=== PATIENT | female | born 1995 ===

== ENCOUNTER 2017-02-05 19:00 | Emergency (ER) | payer OTHER ==
[2017-02-05 19:00] VITALS: BMI 24.9
[2017-02-05 19:32] VITALS: BP 111/67; PULSE 73; RESP 16; TEMP 98.6; O2SAT 100
--- NOTE | 2017-02-05 20:44 | ED PDOC ---
HPI: Abdomen Time Seen by Provider: 02/05/17 19:56 Chief Complaint (Nursing): Abdominal Pain Chief Complaint (Provider): Abdominal pain History Per: Patient History/Exam Limitations: no limitations Onset/Duration Of Symptoms: Days (2) Additional Complaint(s): Patient is a 22 y/o female with no significant past medical history presenting to the emergency department for lower abdominal pain ongoing for two days with associated vaginal discharge. Reports that the pain feels like a "pulling" sensation. Of note, patient is 17 weeks . Notes concern for possible urinary tract infection. Denies vaginal bleeding, dysuria, hematuria, or other complaints. PCP: Dr. Harlan Oh : 1 Para: 0 Past Medical History Reviewed: Historical Data, Nursing Documentation, Vital Signs Vital Signs: Last Vital Signs Temp 98.6 F 02/05/17 19:28 Pulse 73 02/05/17 19:28 Resp 16 02/05/17 19:28 BP 111/67 02/05/17 19:28 Pulse Ox 100 02/05/17 20:51 - Medical History PMH: No Chronic Diseases - Surgical History Surgical History: No Surg Hx - Family History Family History: States: Unknown Family Hx - Social History Current smoker - smoking cessation education provided: No Ex-Smoker (has not smoked in the last 12 months): No Alcohol: Social Drugs: Cannabis - Immunization History Hx Tetanus Toxoid Vaccination: No - Home Medications Home Medications: Ambulatory Orders Medication Instructions Recorded Ibuprofen [Motrin] 600 mg PO Q8 PRN #20 tab 01/24/14 Cyclobenzaprine [Cyclobenzaprine 10 mg PO BID #14 tab 10/05/14 HCl] Ibuprofen [Motrin] 600 mg PO Q8 #30 tab 10/05/14 Nitrofurantoin Macrocrystals 100 mg PO BID #14 cap 10/05/14 [Macrobid] Tobramycin [Tobramycin 5 ml] 1 drop TOP ASDIR #1 bottle 11/22/14 Cyclobenzaprine [Cyclobenzaprine 10 mg PO TID #15 tab 12/14/15 HCl] Naproxen [Naprosyn] 500 mg PO BID #30 tablet 12/14/15 Nitrofurantoin Macrocrystals 100 mg PO BID #14 cap 02/05/17 [Macrobid] - Allergies Allergies/Adverse Reactions: Allergies Allergy/AdvReac Type Severity Reaction Status Date / Time No Known Allergies Allergy Verified 02/05/17 19:28 Review of Systems ROS Statement: Except As Marked, All Systems Reviewed And Found Negative Gastrointestinal: Positive for: Abdominal Pain Genitourinary Female: Positive for: Vaginal Discharge. Negative for: Dysuria, Hematuria, Vaginal Bleeding Physical Exam - Reviewed Nursing Documentation Reviewed: Yes Vital Signs Reviewed: Yes - Physical Exam Appears: Positive for: Well, Non-toxic, No Acute Distress Head Exam: Positive for: ATRAUMATIC, NORMAL INSPECTION, NORMOCEPHALIC Skin: Positive for: Normal Color, Warm, Dry Eye Exam: Positive for: Normal appearance Neck: Positive for: Normal Cardiovascular/Chest: Positive for: Regular Rate, Rhythm. Negative for: Murmur Respiratory: Positive for: Normal Breath Sounds. Negative for: Accessory Muscle Use, Respiratory Distress Gastrointestinal/Abdominal: Positive for: Soft (Gravid), Tenderness (bilateral lower quadrant tenderness). Negative for: Guarding, Rebound Extremity: Positive for: Normal ROM Neurologic/Psych: Positive for: Alert, Oriented (x3) - ECG O2 Sat by Pulse Oximetry: 100 (RA) Pulse Ox Interpretation: Normal Medical Decision Making Medical Decision Making: Time: 20:00 Initial impression: Lower abdominal pain on second trimester Initial plan: Tylenol 650 mg PO Urinalysis OB limited Reevaluation Scribe Attestation: Documented by Ameena Hurtado, acting as a scribe for Vonda Aiken MD. Provider Scribe Attestation: All medical record entries made by the Scribe were at my direction and personally dictated by me. I have reviewed the chart and agree that the record accurately reflects my personal performance of the history, physical exam, medical decision making, and the department course for this patient. I have also personally directed, reviewed, and agree with the discharge instructions and disposition. Disposition - Clinical Impression Clinical Impression: Abdominal pain during in second trimester, UTI in - Disposition Referrals: Harlan Oh MD [Staff Provider] - Disposition: Routine/Home Disposition Time: 23:27 Condition: STABLE Prescriptions: Nitrofurantoin Macrocrystals [Macrobid] 100 mg PO BID #14 cap Instructions: Abdominal Pain in (ED), Urinary Tract Infection in (ED) Forms: [employer] (Uzbek)
[2017-02-05 21:01] LABS: RBC URINE 8 /hpf (0-3); URINE BACTERIA RARE (<OCC); URINE BILIRUBIN NEGATIVE (NEGATIVE); URINE BLOOD SMALL (NEGATIVE); URINE COLOR YELLOW (YELLOW); URINE GLUCOSE (UA) NEG (Normal); URINE KETONE NEGATIVE (NEGATIVE); URINE LEUKOCYTE ESTERASE TRACE Leu/uL (Negative); URINE PROTEIN NEGATIVE (NEGATIVE); URINE UROBILINOGEN 0.2-1.0 mg/dL (0.2-1.0); WBC URINE 9 /hpf (0-5)
--- NOTE | 2017-02-06 08:06 | US ---
PROCEDURE: Second trimester ultrasound HISTORY: Lower abd pain Menstrual status: LMP unknown COMPARISON: None available. TECHNIQUE: Standard protocol for this study/examination. FINDINGS: Variable presentation. Posterior ribs Placenta. No evidence of abruption or previa Gestational age derived from LMP Cannot be ascertained based in the absence of a reliable/ known LMP Gestational age derived from the following biometric parameters 17 weeks 3 days . RAINA 07/13/2017 Biparietal diameter 3.85 cm Head .45 cm Abdominal circumference 11.26 cm Femur length 2.32 cm Estimated weight 182 g Calculated cardiac rate 144 beats per min. Closed cervix measuring 4.72 cm IMPRESSION: 17 weeks 3 days live intrauterine gestation. Gestational concordance Cannot be ascertained based in the absence of a reliable/ known LMP Concordant results (preliminary interpretation) provided by [facility]. Procedure Completed: 21:18 Preliminary ([facility]) Report: Dictated and Authenticated: 23:47 Final Interpretation: 08:05 February 06, 2017.
== END 2017-02-06 00:01 | disposition home or self-care (01) ==
LOC: H.ER 19:00
DX: O23.40 Unspecified infection of urinary tract in pregnancy, unspecified trimester (principal)

== ENCOUNTER 2017-05-10 19:00 | Emergency (ER) | payer OTHER ==
[2017-05-10 20:12] VITALS: BMI 30.7
[2017-05-10] MEDS ORDERED: Lactated Ringer's 1,000 ML IV SCH (20:15)
[2017-05-10 20:48] LABS: ALBUMIN 3.2 g/dL (3.5-5.0); ALT/SGPT 26 U/L (9-52); AST/SGOT 21 U/L (14-36); BLOOD UREA NITROGEN 7 mg/dl (7-17); GFR AFRICAN-AMERICAN > 60; GFR NON-AFRICAN AMERICAN > 60
[2017-05-10 21:50] LABS: SQUAMOUS EPITHIAL 8 /hpf (0-5); URINE BACTERIA OCC (<OCC); URINE BILIRUBIN NEGATIVE (NEGATIVE); URINE BLOOD NEGATIVE (NEGATIVE); URINE CLARITY CLOUDY (Clear); URINE COLOR AMBER (YELLOW); URINE GLUCOSE (UA) NEG (Normal); URINE HYALINE CAST 0-2 /hpf (0-2); URINE LEUKOCYTE ESTERASE MOD Leu/uL (Negative); URINE NITRATE POSITIVE (NEGATIVE); URINE PROTEIN 30 mg/dL (NEGATIVE); URINE UROBILINOGEN 0.2-1.0 mg/dL (0.2-1.0)
--- NOTE | 2017-05-10 22:13 | OBHP ---
Datetime: 05/10/2017 20:05 IP Adm Impression: , intrauterine Admit Comment, IP Provider: 22 yo at 30+3 weeks gestational age, RAINA 07/16/17 presented to OB ED with c/o abdominal cramping and nausea/vomiting since x2 days. States she feels tight abdominal cr amps 2-3 times throughout the night, and the cramps start when she lies down for bed. Has vomited 2x 2 days ago, and once today. Vomit is food particles and saliva, no blood. Reports good movement, denies vaginal bleeding or loss of fluid, denies regular contractions . care: Dr. Oh; last visit was Saturday (3d ago) OB hx: 1 TOP at 4 weeks, surgical. PMH: denies Fam hx: denies Social hx: denies Surg hx: elective TOP Allergies: nkda Meds: PNV ROS: admits to itching with urination, nausea and vomiting over the past 2 days. Denies dizziness, headache, blurry vision, shortness of breath. Exam: for PE see notes not yamileth on monitor reactive FHR A: 22 yo at 30+3 weeks; does not appear to be in active labor. P: hydration, cmp, ua; reassessment Patient was seen with resident I agree with the note. Urine analysis reveals white blood cells and positive leukocytes patient to be treated with Macrobid 7 days. Patient instructed to follow up wi [facility] PMD in 1 week Extremities - PN: Normal Abdomen - PN: Normal Back - PN: Normal Breast - PN: Not Done Lungs - PN: Normal Heart - PN: Normal Thyroid - PN: Not Done Neurologic - PN: Normal HEENT - PN: Normal General - PN: Normal FHR - Baseline A Provider: 150 IP Chief Complaint: Maternal discomfort NICHD Variability Prov Fetus A: Moderate 6-25bpm NICHD Accel Fetus A IP Provider: 15X15 FHR Category Provider Fetus A: Category I
[2017-05-11 03:08] VITALS: BP 103/55; PULSE 77; O2SAT 100
== END 2017-05-10 22:30 | disposition home or self-care (01) ==
LOC: H.EROB2 19:00
DX: O23.43 Unspecified infection of urinary tract in pregnancy, third trimester (principal); O26.93 Pregnancy related conditions, unspecified, third trimester; R10.2 Pelvic and perineal pain; Z3A.30 30 weeks gestation of pregnancy
CPT/HCPCS: 80053; 81003; 96360; 99283; J7120

== ENCOUNTER 2017-05-24 11:18 | Emergency (ER) | payer OTHER ==
[2017-05-24 12:12] VITALS: BMI 30.5
--- NOTE | 2017-05-24 13:54 | OBDCSUM ---
Datetime: 05/24/2017 12:23 Discharged to, Provider: Home Follow up at, Provider: Disch Instr Activity: Normal activity Disch Instr Diet: Regular Discharge Instructions, Provider: Routine instructions given Discharge Time: 05/24/2017 12:30 Follow up in weeks, Provider: call for appointment Disch Referrals: None Contraception discussed, Prov: Yes Discharge Diagnosis Prov Other: vaginal bleeding
--- NOTE | 2017-05-24 13:54 | OBHP ---
Datetime: 05/24/2017 12:22 IP Adm Impression: , intrauterine IP Admit Plan: Discharge home Admit Comment, IP Provider: 22 y/o Female at 32.3 weeks GA with RAINA 07/16/17 by LMP 10/09/16 a nd confirmed by 1st trim US, complaining of vaginal bleeding. Pt described seeing vaginal blood spott ing since last night after coitus. Pt reports vaginal spotting usually occurs after sexual intercours e and disappears the next day. However, vaginal spotting is still present today. FM present. Pt denie s LOF, CTX, urinary complaints, rash, headache or dizziness. NKDA PN Care: with Dr Oh at [facility]. PN Labs: blood group B pos, antibody negative. OBGYN Hx: 1 spontaneous at 1st trimester. PMHx: denied PSHx: denied FHx: NC SHx: No tobacco, alcohol or recreational drugs. A/P: 22 y/o F with IUP at 32.3 weeks GA with vaginal spotting. -Discharge pt after 30 mins of reassuring FHT. -PTL precautions discussed with pt. -Hydration by increasing fluid intake encouraged. Case discussed with Dr Bhardwaj, OB intelligence applications. Dr Tian, PGY-[address] Bhardwaj: Patient evaluated independently and I agree with the above Extremities - PN: Normal Abdomen - PN: Normal Back - PN: Normal Lungs - PN: Normal Heart - PN: Normal Thyroid - PN: Normal Neurologic - PN: Normal HEENT - PN: Normal General - PN: Normal FHR - Baseline A Provider: 150 Comments, ACOG Physical Exam: Pelvic exam: with speculum cervix closed with presence of not significant amount of brownish discharge. Pool Provider: Positive IP Hx Assessment: The History has been Reviewed and is Current EGA AdmitDate IP: 32.3 IP Chief Complaint: Vaginal bleeding NICHD Variability Prov Fetus A: Moderate 6-25bpm NICHD Accel Fetus A IP Provider: 15X15 FHR Category Provider Fetus A: Category I Dilatation, Provider: 0 Effacement, Provider: long Station, Provider: high DTRs - PN: Normal
[2017-05-24 16:59] VITALS: BP 106/66; PULSE 69; RESP 16; TEMP 97.6; O2SAT 100
== END 2017-05-24 12:25 | disposition home or self-care (01) ==
LOC: H.EROB2 11:18
DX: O26.853 Spotting complicating pregnancy, third trimester (principal); Z3A.32 32 weeks gestation of pregnancy

== ENCOUNTER 2017-07-02 03:35 | Inpatient (IN) | payer OTHER ==
[2017-07-02 07:31] VITALS: BMI 31.7
--- NOTE | 2017-07-02 07:32 | OBHP ---
Datetime: 07/02/2017 05:58 IP Adm Impression: Term, intrauterine IP Admit Plan: Observation/Evaluation Admit Comment, IP Provider: CC: ctx HPI: 22YO @ 38wks IUP presents to [facility] for ctx and abdominal pressure that started 3:30 AM this morning. Pt states that her ctx are 7/10 in intensity and are currently Q5mins. Good FM, no LOF , VB. MD: Dr. Oh ObHx: 1 SAB in 2011 PMH: denies SurgH: denies FH: denies SH: denies ETOH, smoking and illicit drug use Allergies: NKDA Meds: PNV PE: GEN: NAD Carduo: S1S2 no additional sounds Resp: clear breath sounds b/l Abdomen: NT, BS+, Gravid Neuro: AAO x 3 Ext: NT, no edema noted Cervx: 2-/0 FM: 140, catagory I A/P: 22YO (RAINA 07/16 by LMP) @ 38wks IUP is evelauted for labor, in latent phase labor. GBS pos, hepB neg, rubella equ, HIV +RPR neg (1st tri). -continue FM -pt encouraged to ambulate -Observe and reevalute Pt discussed with Dr. Burt Aguilar, PGY I OB attending addendum: Patient seen and examined by me agree with above assessment and plan Pelvic Type - PN: Adequate Extremities - PN: Normal Abdomen - PN: Normal Back - PN: Not Done Breast - PN: Normal Lungs - PN: Normal Heart - PN: Normal Thyroid - PN: Not Done Neurologic - PN: Normal HEENT - PN: Normal General - PN: Normal FHR - Baseline A Provider: 140 Membranes, Provider: Intact EGA AdmitDate IP: 38.0 Vital Signs Provider: Reviewed; Within Normal Limits IP Chief Complaint: Uterine contractions NICHD Variability Prov Fetus A: Moderate 6-25bpm NICHD Accel Fetus A IP Provider: 15X15 FHR Category Provider Fetus A: Category I Dilatation, Provider: 2-3 Effacement, Provider: 60 Station, Provider: 0 Genitourinary Exam: Normal DTRs - PN: Not Done
--- NOTE | 2017-07-02 07:36 | OBADHP ---
Datetime: 07/02/2017 07:34 Admit Comment, IP Provider: CC: ctx HPI: 22YO @ 38wks IUP presents to [facility] for ctx and abdominal pressure that started 3:30 AM this morning. Pt states that her ctx are 7/10 in intensity and are currently Q5mins. Good FM, no LOF , VB. MD: Dr. Oh ObHx: 1 SAB in 2011 PMH: denies SurgH: denies FH: denies SH: denies ETOH, smoking and illicit drug use Allergies: NKDA Meds: PNV PE: GEN: NAD Carduo: S1S2 no additional sounds Resp: clear breath sounds b/l Abdomen: NT, BS+, Gravid Neuro: AAO x 3 Ext: NT, no edema noted Cervx: 2-/0 FM: 140, catagory I A/P: 22YO (RAINA 07/16 by LMP) @ 38wks IUP is evelauted for labor, active labor. GBS pos, hepB neg, rubella equ, HIV +RPR neg (1st tri). admit begin pnc G pt d/w dr iker mccurdy for epid Dilatation, Provider: 3 Effacement, Provider: 80 Datetime: 07/02/2017 05:58 Pelvic Type - PN: Adequate Extremities - PN: Normal Abdomen - PN: Normal Back - PN: Not Done Breast - PN: Normal Lungs - PN: Normal Heart - PN: Normal Thyroid - PN: Not Done Neurologic - PN: Normal HEENT - PN: Normal General - PN: Normal FHR - Baseline A Provider: 140 Membranes, Provider: Intact Vital Signs Provider: Reviewed; Within Normal Limits IP Chief Complaint: Uterine contractions NICHD Variability Prov Fetus A: Moderate 6-25bpm NICHD Accel Fetus A IP Provider: 15X15 FHR Category Provider Fetus A: Category I Station, Provider: 0 Genitourinary Exam: Normal DTRs - PN: Not Done EGA AdmitDate IP: 38.0 IP Adm Impression: Term, intrauterine IP Admit Plan: Observation/Evaluation Datetime: 05/24/2017 12:22 Comments, ACOG Physical Exam: Pelvic exam: with speculum cervix closed with presence of not significant amount of brownish discharge. Pool Provider: Positive IP Hx Assessment: The History has been Reviewed and is Current
[2017-07-02] MEDS ORDERED: Penicillin G Potassium 5 MU in Sodium Chloride 0.9% 50 ML IVPB ONE (07:37)
--- NOTE | 2017-07-02 07:40 | OBADHP ---
Datetime: 07/02/2017 07:34 Admit Comment, IP Provider: CC: ctx HPI: 22YO @ 38wks IUP presents to [facility] for ctx and abdominal pressure that started 3:30 AM this morning. Pt states that her ctx are 7/10 in intensity and are currently Q5mins. Good FM, no LOF , VB. MD: Dr. Oh ObHx: 1 SAB in 2011 PMH: denies SurgH: denies FH: denies SH: denies ETOH, smoking and illicit drug use Allergies: NKDA Meds: PNV PE: GEN: NAD Carduo: S1S2 no additional sounds Resp: clear breath sounds b/l Abdomen: NT, BS+, Gravid Neuro: AAO x 3 Ext: NT, no edema noted Cervx: 2-360/0 FM: 140, catagory I A/P: 22YO (RAINA 07/16 by LMP) @ 38wks IUP active labor. resolved variables GBS pos admit begin pnc G pt d/w dr oh ok for epid Presentation-Admit: Vertex FHR - Baseline A Provider: 150-160 Membranes, Provider: Intact Contraction Comments Provider: q4min Comments, ACOG Physical Exam: , hepB neg, rubella equ, HIV +RPR neg (1st tri). IP Chief Complaint: Uterine contractions NICHD Variability Prov Fetus A: Moderate 6-25bpm NICHD Accel Fetus A IP Provider: 15X15 FHR Category Provider Fetus A: Category I NICHD Decel Fetus A IP Provider: Variable Station, Provider: -1 EGA AdmitDate IP: 38.0 IP Adm Impression: Term, intrauterine IP Admit Plan: Admit to unit; Initiate labor protocol
[2017-07-02] MEDS: Lactated Ringer's 1,000 ML IV SCH ×4 (07:45→21:00)
[2017-07-02 08:12] LABS: BASO % 0.3 % (0.0-2.0); EOS % 0.3 % (0.0-4.0); HEMOGLOBIN 12.1 g/dL (12.0-16.0); LYMPH # 2.2 K/uL (1.0-4.3); LYMPH % 22.1 % (20.0-40.0); MEAN CORPUSCULAR HEMOGLOBIN 29.5 pg (27.0-31.0); MEAN CORPUSCULAR HGB CONC 33.7 g/dL (33.0-37.0); MEAN PLATELET VOLUME 10.1 fl (7.2-11.7); MONO # 0.9 K/uL (0.0-0.8); MONO % 8.8 % (0.0-10.0); NEUT # 6.8 K/uL (1.8-7.0); NEUT % 68.5 % (50.0-75.0); NRBC % 0.1 % (0.0-0.0); RBC 4.1 Mil/uL (3.80-5.20); RED CELL DISTRIBUTION WIDTH 14.1 % (11.5-14.5); WHITE BLOOD COUNT 9.9 K/uL (4.8-10.8)
[2017-07-02 08:16] LABS: MEAN CELL VOLUME 87.6 fl (81.0-99.0)
[2017-07-02] MEDS ORDERED: Fentanyl/Bupivacaine HCl 250 ML EPI ONE (11:33)
[2017-07-02] MEDS ORDERED: Fentanyl/Bupivacaine HCl 125 ML EPI ONE (12:15)
[2017-07-02] MEDS ORDERED: Oxytocin 30 units/LR 500ML 30 U/500 ML BAG IV ONE (18:48)
--- NOTE | 2017-07-03 00:55 | OBDS ---
MATERNAL INFORMATION Estimated Blood Loss (ml): 250 Maternal Complications: None Provider Comments: Delivered a living baby girl appears term cried spontaneously 9/9 AF clear Placenta complete and intact Episiotomy done and repaired as above, uterus contracted well, rectal do ne no defects Tolerated procedure well No complications LABOR SUMMARY EDC: 07/16/2017 00:00 No. Babies in Womb: 1 Attempted: Yes Labor Anesthesia: Epidural LABOR INFORMATION Reason for Induction: Not Applicable Onset of Labor: 07/02/2017 11:00 Group B Beta Strep: Positive Steroids Given: None Reason Steroids Not Administered: Not Applicable VAGINAL DELIVERY Episiotomy: Median Laceration Extension: N/A Laceration Type: None Laceration Repair: Not Applicable Laceration Repair Note: midline episiotomy done 1-2 dg and repaired with 2-0 chromic sutures without any complications Sponge Count Correct: Yes Sharps Count Correct: Yes Count Comment: count correct and verified by RN CSECTION DELIVERY Primary Indication: N/A Secondary Indication: N/A CSection Incision: N/A
[2017-07-03] MEDS ORDERED: Oxycodone/Acetaminophen 5/325 mg Tab PO PRN ×2 (00:58→06:14)
[2017-07-03] MEDS: Lactated Ringer's 1,000 ML IV SCH (01:30)
[2017-07-03 06:56] LABS: HEMOGLOBIN 10.5 g/dL (12.0-16.0); MEAN CELL VOLUME 86.9 fl (81.0-99.0); MEAN CORPUSCULAR HEMOGLOBIN 29.9 pg (27.0-31.0); MEAN CORPUSCULAR HGB CONC 34.5 g/dL (33.0-37.0); RBC 3.51 Mil/uL (3.80-5.20); RED CELL DISTRIBUTION WIDTH 14.2 % (11.5-14.5); WHITE BLOOD COUNT 14.5 K/uL (4.8-10.8)
[2017-07-03] MEDS ORDERED: Benzocaine/Menthol SPRAY TOP PRN (13:10)
--- NOTE | 2017-07-04 07:56 | OBPPN ---
Datetime: 07/04/2017 07:50 PP Pain Prov: Within normal limits PP Pain Prov comment: No SOB, chest or leg pains PP Nausea Prov: Denies PP Flatus Prov: Yes PP Nausea Prov comment: voiding well PP Breasts Prov: Normal PP Lungs Prov: Normal PP Abdomen/Uterus Prov: Abnormal PP Lochia Prov: Normal PP Vulva/Perineum Prov: Abnormal PP CVA Tenderness Prov: Normal PP Extremities Prov: Normal PP C/S Incision Prov: Not Applicable PP Progress Prov: Normal PP Comments Phys Exam Prov: breast not engorged NT; Abd soft ND, fundus firm NT below the umb.; Perineum repaired; Ext no calf tenderness PP Impression Prov: Normal progression PP Plan Prov: Continue present management PP Progress Note Prov: OOB and ambulation Continue PP care IP PP Procedures: None Vital Signs Provider PP: Reviewed
[2017-07-04] MEDS: Hydrocortisone 2.5% (Rectal) CREAM PR SCH ×2 (14:44→17:15)
[2017-07-04] MEDS: Hydrocortisone-Pramoxine 1%-1% Foam(10 gm) TOP SCH ×2 (14:46→17:15)
[2017-07-05] MEDS: Hydrocortisone-Pramoxine 1%-1% Foam(10 gm) TOP SCH (09:07)
[2017-07-05] MEDS: Hydrocortisone 2.5% (Rectal) CREAM PR SCH (09:08)
--- NOTE | 2017-07-05 12:44 | OBPPN ---
Datetime: 07/05/2017 12:38 PP Pain Prov: Within normal limits PP Pain Prov comment: No SOB, chest or leg pains PP Nausea Prov: Denies PP Flatus Prov: Yes PP Breasts Prov: Normal PP Lungs Prov: Normal PP Abdomen/Uterus Prov: Abnormal PP Lochia Prov: Normal PP Vulva/Perineum Prov: Abnormal PP CVA Tenderness Prov: Normal PP Extremities Prov: Normal PP Comments Phys Exam Prov: Breast not engorged, fundus firm below the umb NT, abd not distended Perineum repaired ext no calf tenderness PP Impression Prov: Normal progression PP Plan Prov: Continue present management PP Progress Note Prov: D/C home and appt to office 1 wk instructions given IP PP Procedures: None
--- NOTE | 2017-07-05 12:44 | OBDCSUM ---
Datetime: 07/05/2017 12:42 Discharged to, Provider: Home Follow up at, Provider: Dr Adriano Buchanan Instr Activity: Bedrest; May be up to bathroom; May be up for meals; May Shower Disch Instr Diet: Regular Discharge Instructions, Provider: Routine instructions given Discharge Diagnosis, Provider: Term Delivered Discharge Time: 07/05/2017 12:43 Follow up in weeks, Provider: 4-5 wks Disch Referrals: None Contraception discussed, Prov: Yes Disch Activity Restrictions: No exercising; No lifting; No driving; Minimize walking; Minimize stair -climbing; No sexual activity; Nothing in vagina - [place], tampons, douche Discharge Comment, Provider: Continue pp care and PNC vit Contraception after Delivery: Undecided Datetime: 07/05/2017 11:12 Discharged to, Provider: Home Follow up at, Provider: Dr. Adriano Buchanan Instr Activity: Normal activity; May be up to bathroom; May be up for meals; May Shower Disch Instr Diet: Regular Discharge Diagnosis, Provider: Term Delivered Discharge Time: 07/05/2017 11:12 Follow up in weeks, Provider: 6 weeks Disch Referrals: None Disch Activity Restrictions: Minimize stair-climbing; No sexual activity; Nothing in vagina - Interc ourse, tampons, douche
[2017-07-05 18:14] VITALS: BP 128/88; PULSE 72; RESP 20; TEMP 98; O2SAT 98
== END 2017-07-05 12:00 | disposition home or self-care (01) | DRG 373 ==
LOC: H.EROB2 03:35 → H.L&D 07:31 → H.OB/GYN 07-03 05:30
PROVIDERS: ADMIT Specialist; ATTEND Specialist
PROC: 4A1HXCZ Monitoring of Products of Conception, Cardiac Rate, External Approach (ICD-10-PCS; 2017-07-02)
PROC: 0W8NXZZ Division of Female Perineum, External Approach (ICD-10-PCS; principal; 2017-07-03)
PROC: 10E0XZZ Delivery of Products of Conception, External Approach (ICD-10-PCS; 2017-07-03)
DX: O99.824 Streptococcus B carrier state complicating childbirth (principal); Z3A.38 38 weeks gestation of pregnancy; Z37.0 Single live birth

== ENCOUNTER 2017-11-22 21:26 | Inpatient (IN) | payer OTHER ==
[2017-11-22 21:26] VITALS: BMI 31.7
[2017-11-22] MEDS ORDERED: Sodium Chloride 0.9% 1,000 ML IV STA (22:19)
[2017-11-22] MEDS ORDERED: Alum-Mag Hydrox-Simethicone Susp (30 mL) PO STA (22:20)
[2017-11-22 22:50] LABS: BASO # 0.1 K/uL (0.0-0.2); BASO % 0.6 % (0.0-2.0); EOS # 0.1 K/uL (0.0-0.7); EOS % 0.6 % (0.0-4.0); HEMOGLOBIN 13.8 g/dL (12.0-16.0); LYMPH # 2.9 K/uL (1.0-4.3); LYMPH % 28.3 % (20.0-40.0); MEAN CELL VOLUME 89.8 fl (81.0-99.0); MEAN CORPUSCULAR HEMOGLOBIN 31.2 pg (27.0-31.0); MEAN CORPUSCULAR HGB CONC 34.8 g/dL (33.0-37.0); MEAN PLATELET VOLUME 9.2 fl (7.2-11.7); MONO % 9.2 % (0.0-10.0); NEUT # 6.3 K/uL (1.8-7.0); NEUT % 61.3 % (50.0-75.0); NRBC % 0.1 % (0.0-0.0); RBC 4.4 Mil/uL (3.80-5.20); RED CELL DISTRIBUTION WIDTH 13.5 % (11.5-14.5); WHITE BLOOD COUNT 10.4 K/uL (4.8-10.8)
[2017-11-22 22:57] LABS: CALCIUM 9.3 mg/dL (8.4-10.2); GFR NON-AFRICAN AMERICAN > 60; LIPASE 108 U/L (23-300); SQUAMOUS EPITHIAL 9 /hpf (0-5); URINE BILIRUBIN NEGATIVE (NEGATIVE); URINE BLOOD NEGATIVE (NEGATIVE); URINE CLARITY CLOUDY (Clear); URINE COLOR YELLOW (YELLOW); URINE GLUCOSE (UA) NEG (Normal); URINE LEUKOCYTE ESTERASE MOD Leu/uL (Negative); URINE PROTEIN NEGATIVE (NEGATIVE); URINE UROBILINOGEN 0.2-1.0 mg/dL (0.2-1.0)
[2017-11-22 23:15] LABS: ALB/GLOB RATIO 1.4 (1.0-2.1); ALBUMIN 4.8 g/dL (3.5-5.0); ALT/SGPT 11 U/L (9-52); AST/SGOT 47 U/L (14-36); BLOOD UREA NITROGEN 15 mg/dl (7-17)
--- NOTE | 2017-11-22 23:59 | ED PDOC ---
HPI: Abdomen Time Seen by Provider: 11/22/17 21:48 Chief Complaint (Nursing): Abdominal Pain Chief Complaint (Provider): Abdominal Pain History Per: Patient History/Exam Limitations: no limitations Onset/Duration Of Symptoms: Days (x1 week) Current Symptoms Are (Timing): Still Present Additional Complaint(s): 22 year old female with hx of reflux presents to the ED for evaluation of progressively worsening epigastric pain radiating to her back associated with nausea for the past week. She states the day before the pain started, she did have a beer and a shot of liquor. Patient reports that today the pain became worse, therefore took an omeprazole and came in for eval. Otherwise, denies chest pain, vomiting, shortness of breath, palpitations, and previous abdominal surgery. Last bowel movement: today, normal. PMD: Dr. Orozco Past Medical History Reviewed: Historical Data, Nursing Documentation, Vital Signs Vital Signs: Last Vital Signs Temp 97.7 F 11/23/17 05:01 Pulse 68 11/23/17 05:23 Resp 18 11/23/17 05:23 BP 110/72 11/23/17 05:01 Pulse Ox 98 11/23/17 05:01 - Medical History PMH: Denies: Depression, Diabetes, HTN, Chronic Kidney Disease - Surgical History Surgical History: No Surg Hx - Family History Family History: States: Unknown Family Hx - Social History Current smoker - smoking cessation education provided: No Alcohol: Social Drugs: Cannabis - Immunization History Hx Tetanus Toxoid Vaccination: No - Home Medications Home Medications: Ambulatory Orders Medication Instructions Recorded No Known Home Med 11/23/17 - Allergies Allergies/Adverse Reactions: Allergies Allergy/AdvReac Type Severity Reaction Status Date / Time No Known Allergies Allergy Verified 05/24/17 12:12 Review of Systems ROS Statement: Except As Marked, All Systems Reviewed And Found Negative Cardiovascular: Negative for: Chest Pain, Palpitations Respiratory: Negative for: Shortness of Breath Gastrointestinal: Positive for: Nausea, Abdominal Pain (epigastric, radiating to back). Negative for: Vomiting Physical Exam - Reviewed Nursing Documentation Reviewed: Yes Vital Signs Reviewed: Yes - Physical Exam Appears: Positive for: In Acute Distress (moderate painful) Skin: Positive for: Normal Color, Warm, Dry Eye Exam: Positive for: Normal appearance. Negative for: Scleral icterus Cardiovascular/Chest: Positive for: Regular Rate, Rhythm. Negative for: Murmur Respiratory: Positive for: Normal Breath Sounds. Negative for: Accessory Muscle Use, Respiratory Distress Gastrointestinal/Abdominal: Positive for: Tenderness (moderate epigastric and mild RUQ). Negative for: Other (pennington's sign) Back: Positive for: Normal Inspection. Negative for: L CVA Tenderness, R CVA Tenderness Neurologic/Psych: Positive for: Alert, Oriented (x3) - Laboratory Results Result Diagrams: 11/22/17 22:44 11/22/17 22:44 - ECG O2 Sat by Pulse Oximetry: 100 (RA) Pulse Ox Interpretation: Normal Medical Decision Making Medical Decision Making: Time: 2219 Initial Impression: abdominal pain, r/o pancreatitis and cholecystitis Initial Plan: --CMP --Lipase --Urine --CBC with differential --Maalox 30ml PO --Normal saline IV --Pepcid 40mg IVP --Zofran 4mg IVP --Urine culture --Urinalysis --US gallbladder and pancreas 2301 On reevaluation, pt reports no relief in pain. Morphine 4mg ordered. 2333 On second reevaluation, pt reports pain initially resolved, but has now returned. Pending US. 0043 Abd US: Cholelithiasis without sonographic evidence of acute cholecystitis. Pt. still with pain. Morphine 4mg IV. CT abd/pelvis w/ IV contrast ( cholecystitis protocol) ordered. 0252 CT abd/pelvis: 1. Partially distended 9 cm gallbladder with gallstones gallbladder wall prominence measuring 2-3 mm and pericholecystic fluid. Correlation with clinical data is recommended if acute on chronic cholecystitis is clinically suspected. 2. There is left ovarian hypodense cyst measuring 3.6 cm and the right ovarian hypodense cyst measuring 3.0 cm.If clinically warranted, a pelvic ultrasound with spectral Doppler interrogation may be helpful for further assessment. Case d/w Dr. Aguayo, surgery non profit financial controller, who agrees with care and recommends Cipro IV/Flagyl IV and will contact Dr. Mcclendon herself. Case d/w Dr. Mojica, [facility] non profit financial controller, arrangements made for admission. Scribe Attestation: Documented by Nayely Saunders, acting as a scribe for Sean Elizondo PA-C. Provider Scribe Attestation: All medical record entries made by the Scribe were at my direction and personally dictated by me. I have reviewed the chart and agree that the record accurately reflects my personal performance of the history, physical exam, medical decision making, and the department course for this patient. I have also personally directed, reviewed, and agree with the discharge instructions and disposition. Disposition - Clinical Impression Clinical Impression: Cholecystitis - Patient ED Disposition Is Patient to be Admitted: Yes - Disposition Disposition Time: 02:52 Condition: FAIR
[2017-11-23] MEDS ORDERED: Sodium Chloride 0.9% 1,000 ML IV STA (00:53)
[2017-11-23] MEDS ORDERED: Morphine 4 MG/ML VIAL ONE (01:05)
[2017-11-23] MEDS ORDERED: Iohexol 300 100 ML IJ ONE (02:03)
[2017-11-23] MEDS ORDERED: Sodium Chloride 0.9% 50 ML IV ONE (02:03)
[2017-11-23] MEDS ORDERED: Ciprofloxacin 400mg/200ml D5W 400 MG/200 ML BAG IVPB STA (03:15)
[2017-11-23] MEDS ORDERED: metroNIDAZOLE 500mg/100ml NS 100 ML IVPB STA (03:15)
[2017-11-23] MEDS ORDERED: metroNIDAZOLE 500mg/100ml NS 100 ML IVPB ONE (04:19)
[2017-11-23] MEDS ORDERED: Dextrose 5%/0.45% NS 1,000 ML IV SCH (06:30)
[2017-11-23] MEDS: Lactated Ringer's 1,000 ML IV SCH ×2 (06:38→22:00)
--- NOTE | 2017-11-23 07:51 | CT ---
Date of service: 11/23/2017 PROCEDURE: CT Abdomen and Pelvis without intravenous contrast HISTORY: epigastric and RUQ pain COMPARISON: None. TECHNIQUE: Technique. Contrast dose: Radiation dose: Total exam DLP = mGy-cm. This CT exam was performed using one or more of the following dose reduction techniques: Automated exposure control, adjustment of the mA and/or kV according to patient size, and/or use of iterative reconstruction technique. FINDINGS: LOWER THORAX: Unremarkable. LIVER: Unremarkable. No gross lesion or ductal dilatation. GALLBLADDER AND BILE DUCTS: Cholelithiasis. PANCREAS: Unremarkable. No gross lesion or ductal dilatation. SPLEEN: Unremarkable. ADRENALS: Unremarkable. No mass. KIDNEYS AND URETERS: Unremarkable. No hydronephrosis. No solid mass. VASCULATURE: Unremarkable. No aortic aneurysm. BOWEL: Unremarkable. No obstruction. No gross mural thickening. APPENDIX: Unremarkable. Normal appendix. PERITONEUM: Unremarkable. No free fluid. No free air. LYMPH NODES: Unremarkable. No enlarged lymph nodes. BLADDER: Unremarkable. REPRODUCTIVE: Bilateral ovarian cysts/ cystic lesions measuring up to 3.8 centimeters on the left for which correlation pelvic ultrasound is recommended. BONES: No acute fracture. OTHER FINDINGS: None. IMPRESSION: Bilateral ovarian cysts/ cystic lesions measuring up to 3.8 centimeters on the left for which correlation pelvic ultrasound is recommended. Cholelithiasis.
--- NOTE | 2017-11-23 08:21 | US ---
Date of service: 11/22/2017 HISTORY: epigastric and RUQ pain COMPARISON: None. TECHNIQUE: Sonographic evaluation of the right upper quadrant of the abdomen. FINDINGS: LIVER: Measures cm in length. Normal echogenicity of the liver parenchyma. No mass. No intrahepatic bile duct dilatation. GALLBLADDER: Gallstones. COMMON BILE DUCT: Measures mm. No stones. No dilatation. PANCREAS: Unremarkable as visualized. No mass. No ductal dilatation. RIGHT KIDNEY: Measures cm in length. Normal echogenicity. No calculus, mass, or hydronephrosis. AORTA: No aneurysmal dilatation. IVC: Unremarkable. OTHER FINDINGS: None . IMPRESSION: Cholelithiasis.
[2017-11-23] MEDS: metroNIDAZOLE 500mg/100ml NS 100 ML IVPB SCH (08:57)
[2017-11-23] MEDS: Ciprofloxacin 400mg/200ml D5W 400 MG/200 ML BAG IVPB SCH (08:57)
--- NOTE | 2017-11-23 09:42 | CP.PCM.CON ---
History of Present Illness - History of Present Illness History of Present Illness: General Surgery Dr. Mcclendon 22 y/o F w/ no PMHx presents to the ED c/o epigastric/RUQ abd pain. Pain started 1wk [employer] w/ acute worsening overnight. Pain radiates from epigastric region to RUQ and R lower back. For the last week , pain resolved w/ alkaseltzer , however, last night, nothing seemed to help the pain. Pt reports pain made worse by PO intake. Pt reports similar pain when , however pt did not receive workup at that time. Pt admits to concurrent nausea w/ NBNB vomiting. Pt also admits to CP/SOB 2/2 abd pain. PMHx: denies Meds: reviewed in chart NKDA PSHx: denies SHx: denies tobacco, drug use. occasional EtOH FHx: denies Review of Systems - Review of Systems All systems: reviewed and no additional remarkable complaints except (see HPI) Past Patient History - Infectious Disease Hx of Infectious Diseases: None - Tetanus Immunizations Tetanus Immunization: Unknown - Past Medical History & Family History Past Medical History?: Yes - Past Social History Alcohol: Social Drugs: Cannabis - CARDIAC Hx Hypertension: No - PULMONARY Hx Respiratory Disorders: No - NEUROLOGICAL Hx Neurological Disorder: No - HEENT Hx HEENT Problems: No - RENAL Hx Chronic Kidney Disease: No - ENDOCRINE/METABOLIC Hx Endocrine Disorders: No - HEMATOLOGICAL/ONCOLOGICAL Hx Blood Disorders: No - INTEGUMENTARY Hx Dermatological Problems: No - MUSCULOSKELETAL/RHEUMATOLOGICAL Hx Musculoskeletal Disorders: No Hx Falls: No - GASTROINTESTINAL Hx Gastrointestinal Disorders: Yes Other/Comment: Acid reflux - GENITOURINARY/GYNECOLOGICAL Hx Genitourinary Disorders: No - PSYCHIATRIC Hx Depression: No - SURGICAL HISTORY Hx Surgeries: Yes Other/Comment: x1 - ANESTHESIA Hx Anesthesia: Yes Hx Anesthesia Reactions: No Hx Malignant Hyperthermia: No Meds Allergies/Adverse Reactions: Allergies Allergy/AdvReac Type Severity Reaction Status Date / Time No Known Allergies Allergy Verified 05/24/17 12:12 - Medications Medications: Current Medications Ciprofloxacin (Cipro 400mg/200ml Dsw) 400 mg in 200 mls @ 200 mls/hr IVPB DAILY NATASHA PRN Reason: Protocol Last Admin: 11/23/17 08:57 Dose: 200 mls/hr Metronidazole (Flagyl 500mg/100ml Ns) 100 mls @ 100 mls/hr IVPB DAILY NATASHA PRN Reason: Protocol Last Admin: 11/23/17 08:57 Dose: 100 mls/hr Lactated Ringer's (Lactated Ringer's) 1,000 mls @ 125 mls/hr IV .Q8H [facility] Last Admin: 11/23/17 06:38 Dose: 125 mls/hr Morphine Sulfate (Morphine) 2 mg IVP Q3 PRN PRN Reason: Pain, moderate (4-7) Ondansetron HCl (Zofran Inj) 4 mg IVP Q4 PRN PRN Reason: Nausea/Vomiting Pantoprazole Sodium (Protonix Inj) 40 mg IVP DAILY [facility] Last Admin: 11/23/17 08:53 Dose: 40 mg Physical Exam - Constitutional Appears: Non-toxic, No Acute Distress - Head Exam Head Exam: NORMAL INSPECTION - Eye Exam Eye Exam: Normal appearance - ENT Exam ENT Exam: Mucous Membranes Moist - Respiratory Exam Respiratory Exam: NORMAL BREATHING PATTERN. absent: Accessory Muscle Use, Respiratory Distress - Cardiovascular Exam Cardiovascular Exam: REGULAR RHYTHM. absent: Bradycardia, Tachycardia - GI/Abdominal Exam GI & Abdominal Exam: Soft. absent: Distended (obese), Firm, Guarding, Rebound, Rigid, Tenderness - Extremities Exam Extremities exam: Positive for: normal inspection. Negative for: pedal edema - Neurological Exam Neurological exam: Alert, Oriented x3 - Psychiatric Exam Psychiatric exam: Normal Affect, Normal Mood - Skin Skin Exam: Dry, Intact, Normal Color, Warm Results - Vital Signs Recent Vital Signs: Last Vital Signs Temp 97.6 F 11/23/17 07:51 Pulse 62 11/23/17 07:51 Resp 20 11/23/17 07:51 BP 101/66 11/23/17 07:51 Pulse Ox 98 11/23/17 07:51 - Labs Result Diagrams: 11/22/17 22:44 11/22/17 22:44 Labs: Laboratory Results - last 24 hr 11/22/17 11/22/17 11/22/17 22:44 22:44 22:44 WBC 10.4 RBC 4.40 Hgb 13.8 D Hct 39.6 MCV 89.8 D MCH 31.2 H MCHC 34.8 RDW 13.5 Plt Count 301 MPV 9.2 Neut % (Auto) 61.3 Lymph % (Auto) 28.3 Fleming % (Auto) 9.2 Eos % (Auto) 0.6 Baso % (Auto) 0.6 Neut # (Auto) 6.3 Lymph # (Auto) 2.9 Fleming # (Auto) 1.0 H Eos # (Auto) 0.1 Baso # (Auto) 0.1 Sodium 140 Potassium 5.1 H Chloride 104 Carbon Dioxide 25 Anion Gap 16 BUN 15 Creatinine 0.7 Est GFR ( Amer) > 60 Est GFR (Non-Af Amer) > 60 Random Glucose 86 Calcium 9.3 Total Bilirubin 1.2 AST 47 H D ALT 11 Alkaline Phosphatase 67 Total Protein 8.3 H Albumin 4.8 Globulin 3.5 Albumin/Globulin Ratio 1.4 Lipase 108 Urine Color Yellow Urine Clarity Cloudy Urine pH 5.0 Ur Specific [place] 1.030 Urine Protein Negative Urine Glucose (UA) Neg Urine Ketones Negative Urine Blood Negative Urine Nitrate Negative Urine Bilirubin Negative Urine Urobilinogen 0.2-1.0 Ur Leukocyte Esterase Mod Urine RBC (Auto) 6 H Urine Microscopic WBC 21 H Ur Squamous Epith Cells 9 H - Imaging and Cardiology CT scan - abdomen Status: Image reviewed by me, Report reviewed by me US - abdomen Status: Image reviewed by me, Report reviewed by me Assessment & Plan - Assessment and Plan (Free Text) Assessment: 22 y/o F w/ symptomatic cholelithaisis vs acute cholecystitis - IVF - IV abx - pain mangement - anti-emetic - NPO vs CLD - f/u Labs - encourage OOB to chair/Amb Pt discussed w/ Dr. Hakan Aguayo DO PGY3
[2017-11-24] MEDS: Lactated Ringer's 1,000 ML IV SCH (06:41)
[2017-11-24 07:22] LABS: BASO % 0.7 % (0.0-2.0); EOS % 0.6 % (0.0-4.0); LYMPH # 2.4 K/uL (1.0-4.3); LYMPH % 43.3 % (20.0-40.0); MEAN CELL VOLUME 90.2 fl (81.0-99.0); MEAN CORPUSCULAR HEMOGLOBIN 30.8 pg (27.0-31.0); MEAN CORPUSCULAR HGB CONC 34.1 g/dL (33.0-37.0); MEAN PLATELET VOLUME 9.3 fl (7.2-11.7); MONO # 0.5 K/uL (0.0-0.8); MONO % 9.6 % (0.0-10.0); NEUT # 2.5 K/uL (1.8-7.0); NEUT % 45.8 % (50.0-75.0); RBC 3.9 Mil/uL (3.80-5.20); RED CELL DISTRIBUTION WIDTH 13.8 % (11.5-14.5); WHITE BLOOD COUNT 5.5 K/uL (4.8-10.8)
[2017-11-24 07:40] VITALS: BP 95/60; PULSE 66; RESP 19; TEMP 98.1; O2SAT 98
[2017-11-24 07:41] LABS: ALB/GLOB RATIO 1.4 (1.0-2.1); ALBUMIN 3.4 g/dL (3.5-5.0); ALT/SGPT 25 U/L (9-52); AST/SGOT 20 U/L (14-36); BLOOD UREA NITROGEN 6 mg/dl (7-17); CALCIUM 8.9 mg/dL (8.4-10.2); GFR NON-AFRICAN AMERICAN > 60
--- NOTE | 2017-11-24 07:42 | CP.PCM.PN ---
Subjective - Date & Time of Evaluation Date of Evaluation: 11/24/17 Time of Evaluation: 07:39 - Subjective Subjective: Surgery: Dr. Mcclendon Pt seen and examined. Resting comfortably in bed. Pain resolved. Tolerated clear liquids without issue. No N/V. Objective - Vital Signs/Intake and Output Vital Signs (last 24 hours): Temp Pulse Resp BP Pulse Ox 98.1 F 66 19 95/60 L 98 11/24/17 07:39 11/24/17 07:39 11/24/17 07:39 11/24/17 07:39 11/24/17 07:39 - Medications Medications: Current Medications Ciprofloxacin (Cipro 400mg/200ml Dsw) 400 mg in 200 mls @ 200 mls/hr IVPB DAILY NATASHA PRN Reason: Protocol Last Admin: 11/23/17 08:57 Dose: 200 mls/hr Metronidazole (Flagyl 500mg/100ml Ns) 100 mls @ 100 mls/hr IVPB DAILY NATASHA PRN Reason: Protocol Last Admin: 11/23/17 08:57 Dose: 100 mls/hr Lactated Ringer's (Lactated Ringer's) 1,000 mls @ 125 mls/hr IV .Q8H [facility] Last Admin: 11/23/17 22:00 Dose: 125 mls/hr Morphine Sulfate (Morphine) 2 mg IVP Q3 PRN PRN Reason: Pain, moderate (4-7) Ondansetron HCl (Zofran Inj) 4 mg IVP Q4 PRN PRN Reason: Nausea/Vomiting Pantoprazole Sodium (Protonix Inj) 40 mg IVP DAILY [facility] Last Admin: 11/23/17 08:53 Dose: 40 mg - Labs Labs: 11/24/17 06:30 11/22/17 22:44 - Constitutional Appears: Non-toxic, No Acute Distress - Head Exam Head Exam: ATRAUMATIC, NORMOCEPHALIC - Eye Exam Eye Exam: EOMI - ENT Exam ENT Exam: Mucous Membranes Moist - Neck Exam Neck Exam: Full ROM - Respiratory Exam Respiratory Exam: NORMAL BREATHING PATTERN. absent: Accessory Muscle Use, Respiratory Distress - GI/Abdominal Exam GI & Abdominal Exam: Soft. absent: Distended, Firm, Guarding, Rigid, Tenderness , Rebound - Extremities Exam Extremities Exam: absent: Calf Tenderness, Pedal Edema - Neurological Exam Neurological Exam: Alert, Awake, Oriented x3 - Skin Skin Exam: Dry, Normal Color, Warm Assessment and Plan - Assessment and Plan (Free Text) Assessment: 22F with biliary colic -Pain resolved -Will give low fat diet -If diet tolerated, pt clear for D/C from surgical standpoint -Pt can f/u with Dr. Mcclendon outpt to discuss elective josefina -d/w attending Tanner PGY4
[2017-11-24] MEDS: metroNIDAZOLE 500mg/100ml NS 100 ML IVPB SCH (08:24)
[2017-11-24] MEDS: Ciprofloxacin 400mg/200ml D5W 400 MG/200 ML BAG IVPB SCH (08:25)
== END 2017-11-24 13:13 | disposition home or self-care (01) | DRG 208 ==
LOC: H.ER 21:26 → H.ERHOLD 11-23 03:02 → H.MEDSURG1 11-23 04:45
PROVIDERS: ADMIT Family Medicine; ATTEND Family Medicine
DX: K81.9 Cholecystitis, unspecified (principal); K21.9 Gastro-esophageal reflux disease without esophagitis